=== PATIENT | male | born 1995 | race Caucasian/White ===

== ENCOUNTER 2017-02-05 20:53 | Emergency (ER) | payer OTHER ==
[~2017-02-05] VITALS: Ht 172.7 cm; Wt 96.3 kg
[~2017-02-05 20:53] MED LIST: ATOM40CA PO; QUET50TA PO
[2017-02-05 21:22] VITALS: Ht 172.7 cm; Wt 96.3 kg
--- NOTE | 2017-02-05 21:28 | NUR ---
WAITING ROOM PT AMBULATES TO WAITING ROOM AT THIS TIME TO AWAIT ROOM PLACEMENT. MASK IS IN PLACE OVER PT'S MOUTH AND NOSE DUE TO SYMPTOMS.
[2017-02-05] MEDS ORDERED: PRED1TAB PO (21:58)
[2017-02-05] MEDS ORDERED: AMOX500C2 PO (21:58)
[2017-02-05 22:33] LABS: BASOPHILS % (AUTO) 0.2 % (0-2); EOSINOPHILS # (AUTO) 0.1 T/MM3 (0-0.5); EOSINOPHILS % (AUTO) 0.5 % (0-4); HCT - HEMATOCRIT 41.8 % (41-53); HGB - HEMOGLOBIN 14.7 GM/DL (13.5-17.5); IMMATURE GRANULOCYTE # (AUTO) 0.02 T/MM3 (0.00-0.03); IMMATURE GRANULOCYTE % (AUTO) 0.2 % (0.0-0.5); LYMPHOCYTES % (AUTO) 22.1 % (23-45); MEAN CORPUSCULAR HGB 31.4 UUG (26-34); MEAN CORPUSCULAR HGB CONC(MCHC 35.2 GM/DL (31-37); MEAN CORPUSCULAR VOLUME 89.3 UM3 (80-100); MEAN PLATELET VOLUME 10.3 UM3 (9.4-12.4); MONOCYTES # (AUTO) 0.8 T/MM3 (0-0.8); MONOCYTES % (AUTO) 8.3 % (0-9.0); NEUTROPHILS #(AUTO)-ABSOLUTE 6.3 T/MM3 (1.8-7.7); NEUTROPHILS % (AUTO) 68.7 % (33-66); RED BLOOD COUNT 4.68 M/MM3 (4.50-5.90); WBC - WHITE BLOOD COUNT 9.2 T/MM3 (4.5-11.0)
[2017-02-05 22:44] LABS: ALBUMIN 4.1 G/DL (3.5-5.0); ALBUMIN/GLOBULIN RATIO 1.4 RATIO (1.1-2.2); ALKALINE PHOSPHATASE 53 U/L (38-126); ALT (SGPT) 30 U/L (21-72); ANION GAP 12 MEQ/L (5-15); AST (SGOT) 21 U/L (17-59); BUN/CREATININE RATIO 22 RATIO (6-26); CALCIUM 9.5 MG/DL (8.4-10.2); CHLORIDE 106 MEQ/L (98-107); CO2 - CARBON DIOXIDE 27 MEQ/L (22-30); CREATININE 0.9 MG/DL (0.8-1.5); GLOMERULAR FILTRATION RATE 106; GLUCOSE 90 MG/DL (75-110); SODIUM 145 MEQ/L (134-144); TOTAL PROTEIN 7.1 G/DL (6.3-8.2)
[2017-02-05 22:49] LABS: INFLUENZA A AG SCREEN NEGATIVE (NEGATIVE); INFLUENZA B AG SCREEN NEGATIVE (NEGATIVE)
[2017-02-05] MEDS ORDERED: PRED10TA PO (23:29)
--- NOTE | 2017-02-05 23:29 | ERPDOC ---
Departure Disposition Decision Date: Feb 05, 2017 Disposition Decision Time: 23:28 Disposition: 01 DISCHARGED HOME, SELF-CARE Impression Impression Impression: Primary Impression: Viral bronchitis Severity: Moderate Condition: Stable Seen By: Physician only Patient Instructions: Upper Respiratory Infection (ED) Problems/Meds/Labs Reviewed?: Yes Medications reviewed and manag: Yes Additional Instructions: Prednisone 10 mg tablet, 3 tablets daily for 3 days, 2 tablets daily for 3 days , one tablet daily for 3 days. Follow up care ordered?: Yes Mental Status: Alert, Oriented Scripts Prednisone (Prednisone) 10 Mg Tablet 0 PO TAPERQD, #18 TAB 30 mg daily x3 days 20 mg daily x3 days 10 mg daily x2 days Prov: MARQUITA JESSICA MD 02/05/17 HPI - Cough/URI General Chief Complaint: Cough,Fever,Flu,URI Stated Complaint: CONGESTION/SORE THROAT/WEAKNESS Time Seen by Provider: 22:06 HPI - Cough/URI Initial Comments 21-year-old male with cough sore throat for 2 or more weeks at this point. Patient has had a hacking cough, coughing aggressively enough that it caused him to vomit today. He's had no diarrhea. He does smoke one half to one pack per day. He's had no fever the last couple days, but feels like his lung irritation is progressing. Allergies: Coded Allergies: levalbuterol (Verified Allergy, Mild, "COUGH UP BLOOD", 02/05/17) Past History Past Medical History Psychological: depression, drug abuse, other Social History Smoking Status: Current every day smoker Substance Use Type: former substance user, marijuana, methamphetamine Substance last used: days (ago) Alcohol Intake: none Marital Status: Single Record Review Pertinent history updated: Yes Review of Systems Pulmonary Respiratory: see HPI Musculoskeletal General: see HPI All other Systems All Other Systems: Reviewed and Negative Physical Exam General General Nourishment: well nourished, well developed, appears stated age, no acute distress General Body Habitus: well groomed Vitals and Pain First Documented Vital Signs Date Time Temp Pulse Resp B/P Pulse Ox O2 Delivery O2 Flow Rate FiO2 02/05/17 21:22 98.5 89 18 127/81 99 Room Air Weight: Kilograms: 96.300 Height (feet): 5 Height (inches): 8.00 Triage Pain Scale: Normal Exams: Head: Normocephalic w/o trauma Neck: Full range of motion, without adenopathy, JVD, bruits or thyromegaly CV: Regular rate and rhythm, without murmur or gallop, Pulses 2+ all extremities, capillary refill, <2 seconds all ext., no pedal edema noted Abdomen: Bowel sounds positive, soft, non-tender, non-distended, no hepatosplenomegaly, masses or bruits noted Neurologic: Patient is alert, and oriented, cranial nerves, motor/sensory/ cerebellar, exams w/o gross deficits, to observation Psychiatric: Patient exhibits, appropriate attention, emotion and affect Respiratory (brief) Comments Wheezing minimal bilateral, no crackles heard. Very asthmatic sounding cough Differential Diagnoses Differential Diagnoses Considering: Acute Bronchitis, Asthma Exacerbation, Influenza, Pharyngitis, Pneumonia, Other Progress Results/Orders Orders Procedure Category Date Status Time Cmp - Comprehensive LAB 02/05/17 Complete Metabolic 22:09 Cbc W/Auto LAB 02/05/17 Complete Diff-Reflex Manual 22:09 Influenza A/B Screen LAB 02/05/17 Complete 22:09 Chest, Pa & Lateral RAD 02/05/17 Taken 22:09 Methylprednisolone PHA 02/05/17 Complete Sod Succ (Solu-Medrol 22:15 Lab Results Laboratory Tests Test 02/05/17 22:22 02/05/17 22:24 Influenza Type A Antigen Negative Influenza Type B Antigen Negative White Blood Count 9.2T/MM3 Red Blood Count 4.68M/MM3 Hemoglobin 14.7GM/DL Hematocrit 41.8% Mean Corpuscular Volume 89.3UM3 Mean Corpuscular Hemoglobin 31.4UUG Mean Corpuscular Hemoglobin Concent 35.2GM/DL RDW Standard Deviation 38.8FL Platelet Count 206T/MM3 Mean Platelet Volume 10.3UM3 Immature Granulocyte % (Auto) 0.2% Neutrophils (%) (Auto) 68.7% Lymphocytes (%) (Auto) 22.1% Monocytes (%) (Auto) 8.3% Eosinophils (%) (Auto) 0.5% Basophils (%) (Auto) 0.2% Absolute Immature Granulocyte (auto 0.02T/MM3 Absolute Neutrophils (auto) 6.3T/MM3 Absolute Lymphocytes (auto) 2.0T/MM3 Absolute Monocytes (auto) 0.8T/MM3 Absolute Eosinophils (auto) 0.1T/MM3 Absolute Basophils (auto) 0.0T/MM3 Turbidity < 20 Sodium Level 145MEQ/L Potassium Level 4.0MEQ/L Chloride Level 106MEQ/L Carbon Dioxide Level 27MEQ/L Anion Gap 12MEQ/L Blood Urea Nitrogen 20.0MG/DL Creatinine 0.9MG/DL Glomerular Filtration Rate Calc 106 BUN/Creatinine Ratio 22RATIO Glucose Level 90MG/DL Calculated Osmolality 282MOSM/KG Calcium Level 9.5MG/DL Total Bilirubin 0.50MG/DL Icterus Index < 2 Aspartate Amino Transf (AST/SGOT) 21U/L Alanine Aminotransferase (ALT/SGPT) 30U/L Alkaline Phosphatase 53U/L Total Protein 7.1G/DL Albumin 4.1G/DL Globulin 3.0G/DL Albumin/Globulin Ratio 1.4RATIO Chemistry Specimen Hemolysis < 15 Medications Current ED Medications Methylprednisolone Sodium Succinate (Solu-Medrol) 125 mg O ONCE IV Last administered on 02/05/17t 22:27; Start 02/05/17 at 22:15; Stop 02/05/17 at 22:16 ; Status DC Progress Progress Labs returned normal, influenza is negative. Chest x-ray is normal. Except for peribronchiolar cuffing. Patient was given Solu-Medrol 125 mg IM. He'll be discharged with prednisone burst and taper, recommend stop smoking. We'll have him take tomorrow off work and return on the . MARQUITA JESSICA MD Feb 05, 2017 23:29
[2017-02-05 23:42] VITALS: BP 127/81; PULSE 89; RESP 18; TEMP 98.5; O2SAT 99
--- NOTE | 2017-02-05 23:42 | NUR ---
DEPART PT IS GIVEN DISMISSAL INSTRUCTIONS WITH VERBAL UNDERSTANDING. SCRIPT X1 GIVEN TO PT. PT AMBULATORY TO ED EXIT
--- NOTE | 2017-02-06 08:02 | DI ---
INDICATION: ITS.REASON: cough, dyspnea PROCEDURE: CHEST 2-VIEWS UPRIGHT (PA \T\ LAT) Encounter: Initial COMPARISON: August 14, 2016 FINDINGS: The lungs are clear without evidence of focal abnormal airspace opacity. There is no pleural effusion or pneumothorax. The heart size, mediastinal contours and pulmonary vascularity are within normal limits. There is no significant skeletal abnormality. IMPRESSION: No acute cardiopulmonary disease. .
== END 2017-02-05 23:40 | disposition home or self-care (01) ==
LOC: ED 20:53
DX: J20.8 Acute bronchitis due to other specified organisms (principal); F17.200 Nicotine dependence, unspecified, uncomplicated
CPT/HCPCS: 71020; 80053; 85025; 87400; 96374; 99284; J2930